=== PATIENT | female | born 1950 | race Asian ===

== ENCOUNTER 2017-07-27 09:40 | Emergency (ER) | payer SELFPAY ==
[~2017-07-27] VITALS: Ht 162.6 cm; Wt 75.0 kg
[2017-07-27] MEDS ORDERED: IBUPROFEN 600MG TABLET PO ONE (11:30)
[2017-07-27 11:33] VITALS: BP 132/76
== END 2017-07-27 11:46 | disposition home or self-care (01) ==
LOC: ER 09:43
DX: S60.221A Contusion of right hand, initial encounter (principal); Z88.0 Allergy status to penicillin; W19.XXXA Unspecified fall, initial encounter; Y93.89 Activity, other specified; Y92.89 Other specified places as the place of occurrence of the external cause; Y99.8 Other external cause status
CPT/HCPCS: 73130; 99284